=== PATIENT | female | born 1935 | race Caucasian/White ===

== ENCOUNTER 2021-12-06 10:45 | Outpatient (RCR) | payer MEDICARE, OTHER, SELFPAY ==
--- NOTE | 2021-10-03 07:36 | PT.OPEX ---
Please sign below for PT evaluation completed on 10/02/21. Thank you. PT [place] [facility] Eval PT [facility] Outpatient Eval Start: 09/24/21 12:59 Freq: Status: Active Protocol: Document 10/02/21 09:46 TLQ (Rec: 10/02/21 13:30 TLQ [id number]) E-signed By Dania Lantigua DPT Physical Therapy Outpatient Evaluation Insurance Information Recert Due Date 11/27/21 Insurance Name [employer],Medicare B Medical Diagnosis Trochanteric bursitis, R hip ( M70.61) Treating Diagnosis Pain in R hip (M25.551) Muscle weakness (M62.81) Referring MD Lara Brown PA-C Subjective Subjective Patient states she had a hip replacement last May, about a few months ago she started re-doing her exercises that she had been doing previously and had pain that goes down the side and front of her R thigh, also has pain into the groin on the R. Has tried icing her hip 2x a day and has been taking Tylenol, hasn't seemed to help much. Saw SUYAPA, thinks it is bursitis. Pain is worst when sitting and transitioning to standing, mild pain with walking. Also has some pain when she sleeps, likes to sleep on her R side. Patient reports pain as more of a muscle pain, not nerve- related, never radiates below the knee. Pain Comments 0/10 at best 5/10 at worst Date of Last Physician Visit 09/20/21 Current Work Status Retired Preferred Name Dipika Precautions Therapy Limitations/Systems Review Not Limited Objective Range of Motion Hip: flexion - L 110, R 123 twinge internal rotation - L 35, R 20 external rotation - L 20, R 22 Strength Hip: flexion - L 4/5, R 3+/5 pain abduction - 4+/5 bl adduction - L 4/5, R 4/5 groin pain internal rotation - L 5/5, R 4 /5 external rotation - L 4/5, R 3 /5 pain Knee: flexion - 5/5 bl extension - 4+/5 bl Balance & Gait TUG - not performed due to time constraints, plan to assess next visit Antalgic gait pattern, slow sal, no use of AD Posture LLD - supine to sit test - RLE shorter in supine and long sit (R posterior innominate rotation) Other/Pertinent Objective DERREK - positive bilaterally R greater trochanter tender with palpation Tender with palpation of R quadricep and IT band Increase muscle tone in R glutes/piriformis Mild edema noted at R great trochanter Assessment Assessment/Impression Patient is a 86 year old female who presents to physical therapy with symptoms and objective findings consistent with greater trochanteric pain syndrome and bursitis. Pain increases with prolonged sitting and transitional movements, also increases when laying on affected side and with resisted ER of the R hip. Mild edema noted around R greater trochanter, tight gluteal muscles with palpation. Additionally patient found to have leg length discrepancy, RLE was shorter with supine to sit test and realigned using MET to correct posterior innominate rotation on R. Patient noted to have slower, antalgic gait, plan to assess functional balance next time to assess fall risk, not tested this visit due to time constraints. Provided patient with LE stretches to reduce tissue tightness and educated her in pathology of hip bursitis. She will benefit from skilled physical therapy interventions to reduce tissue irritation, improve muscle flexibility, and increase hip strength to decrease symptoms and improve mobility to return patient to [facility]. Primary Functional Limitations pain in R hip, pain with laying on R side, pain with transitioning from sit to stand, hip muscle weakness Plan of Care Rehabilitation Potential Good Physical Therapy Goals created 10/02/21: STG - Patient will decrease subjective report of pain at worst from 5/10 to 3/10 to indicate improving symptoms and less pain with getting out of her car in 4 weeks. STG - Patient will increase R gross hip strength to 4/5 in order to maintain pelvic alignment and decrease pressure placed on R hip to allow healing in 4 weeks. LTG - Patient will increase gross hip strength to 5/5 to normal gait pattern and ambulate with less pain in her hip in 8 weeks. LTG - Patient will adhere to HEP consisting of LE stretches and strengthening exercises to manage R hip symptoms on her own and reduce recurrence of symptoms for improve QOL in 8 weeks. Treatment Plan/Direct Interventions Gait Training,Ice/Cold/ Vasopneumatic,Joint Mobilization,Manual Therapy, Neuromuscular Re-ed, Therapeutic Activities, Therapeutic Exercises, Ultrasound Frequency/Duration 1x/week for 6-8 weeks Patient Will Be Discharged From Therapy Completion of LTG(s),Skills Plateau,Independent w/HEP, Independently Progressing Evaluation Billing Untimed Code Treatment Minutes 30 Complexity Low
== END 2022-01-17 15:07 | disposition home or self-care (01) ==
PROVIDERS: PCP Family Medicine; Visit Provider Physician Assistant Surgical
DX: M70.61 Trochanteric bursitis, right hip (principal); Z51.89 Encounter for other specified aftercare
CPT/HCPCS: 97110; 97140; 97161

== ENCOUNTER 2022-02-01 09:04 | Outpatient (CLI) | payer OTHER, MEDICARE, SELFPAY | END 2022-02-01 09:05 | disposition home or self-care (01) | LOC: AMB 02-17 21:00 | PROVIDERS: PCP Family Medicine; Visit Provider Emergency Medicine Emergency Medical Services | DX: S19.9XXA Unspecified injury of neck, initial encounter (principal); V86.05XA Driver of 3- or 4- wheeled all-terrain vehicle (ATV) injured in traffic accident, initial encounter; Y92.410 Unspecified street and highway as the place of occurrence of the external cause | CPT/HCPCS: A0425; A0427 ==

== ENCOUNTER 2022-02-01 09:38 | Emergency (ER) | payer MEDICARE, OTHER, SELFPAY ==
[2022-02-01] VITALS (46 sets, daily range): BP systolic 142–182; BP diastolic 75–104; PULSE 67–83; RESP 20–24; TEMP 36.1; O2SAT 90–97
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
[2022-02-01 10:14] LABS: Basophils Absolute Auto 0.02 K/uL (0.00-0.30); Basophils Percent Auto 0.3 % (0.0-3.0); Eosinophils Absolute Auto 0.18 K/uL (0.00-0.50); Eosinophils Percent Auto 3.1 % (0.0-7.0); Hematocrit 41.7 % (33.0-51.0); Hemoglobin* 14.1 gm/dL (12.0-16.0); Immature Granulocytes Abs Auto 0.07 K/uL (0.00-0.30); Immature Granulocytes Pct Auto 1.2 %; Lymphocytes Percent Auto 14.6 % (20-44); Mean Corpuscular HGB Conc 34 gm/dL (32-36); Mean Corpuscular Hemoglobin 34 pg (26-34); Mean Corpuscular Volume 100 fL (80-100); Monocytes Percent Auto 10.7 % (0.0-11.0); Neutrophils Absolute Auto 4.14 K/uL (1.7-7.0); Neutrophils Percent Auto 70.1 % (42.0-72.0); Platelet Count* 218 K/uL (140-440); RDW Coefficient of Variation % 12.6 % (11.5-15.5); Red Blood Count 4.16 m/uL (4.00-5.20)
[2022-02-01 10:19] LABS: Slide Review Reflex No
[2022-02-01 10:20] LABS: Chloride* 103 mmol/L (96-114)
[2022-02-01 10:21] LABS: Potassium* 4.3 mmol/L (3.6-5.1); Sodium* 135 mmol/L (135-149)
[2022-02-01 10:23] LABS: Blood Urea Nitrogen* 17 mg/dL (7-30); Carbon Dioxide* 26 mmol/L (20-32); Creatinine* 1.1 mg/dL (0.5-1.5); Estimated Glomerular Filt Rate 49 ml/min
[2022-02-01 10:24] LABS: Calcium* 8.9 mg/dL (8.4-10.6); Glucose* 101 mg/dL (60-115)
[2022-02-01 10:25] LABS: INR 1.33 (0.91-1.10); Prothrombin Time 17.2 Seconds
[2022-02-01] MEDS: HYDROmorphone 0.5 mg/0.5 ml inj 0.2 MG IVP (10:32)
[2022-02-01 11:15] LABS: Creatinine, Point-of-Care* 1.2 mg/dl (0.6-1.3)
[2022-02-01] MEDS: HYDROmorphone 0.5 mg/0.5 ml inj IVP (11:28)
--- NOTE | 2022-02-01 12:15 | ED.NURSE ---
MD in room to update pt with results. EMS c-collar removed, ED c-collar applied for better fit.
[2022-02-01] MEDS: ONDANSETRON 2 MG/ML inj 4 MG IVP (13:30)
--- NOTE | 2022-02-01 13:47 | ED.NURSE ---
Report called to [facility] ED RN.
== END 2022-02-01 13:40 | disposition other institution (70) ==
PROVIDERS: Emergency Provider Emergency Medicine Emergency Medical Services; PCP Family Medicine
DX: S12.101A Unspecified nondisplaced fracture of second cervical vertebra, initial encounter for closed fracture (principal); S12.201A Unspecified nondisplaced fracture of third cervical vertebra, initial encounter for closed fracture; V86.59XA Driver of other special all-terrain or other off-road motor vehicle injured in nontraffic accident, initial encounter
CPT/HCPCS: 36415; 70450; 71260; 72125; 74177; 80048; 82565; 85025; 85610; 93005; 96374; 96375; 96376; 99285; 99291; G0390; J1170; J2405; Q9967

== ENCOUNTER 2022-02-01 13:28 | Outpatient (CLI) | payer OTHER, MEDICARE, SELFPAY | END 2022-02-01 13:29 | disposition home or self-care (01) | LOC: AMB 02-17 21:04 | PROVIDERS: PCP Family Medicine; Visit Provider Emergency Medicine Emergency Medical Services | DX: S12.100S Unspecified displaced fracture of second cervical vertebra, sequela (principal); S12.200S Unspecified displaced fracture of third cervical vertebra, sequela; S22.089S Unspecified fracture of T11-T12 vertebra, sequela | CPT/HCPCS: A0425; A0426 ==

== ENCOUNTER 2022-02-09 10:28 | Inpatient (IN) | payer MEDICARE, OTHER, SELFPAY ==
[2022-02-09] VITALS (13 sets, daily range): BP systolic 113–149; BP diastolic 45–67; PULSE 69–71; RESP 14–25; TEMP 36.3–36.7; O2SAT 92–95; BMI 25.5; BMI 26.4
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
[2022-02-09 11:57] LABS: Basophils Percent Auto 0.1 % (0.0-3.0); Eosinophils Percent Auto 0.2 % (0.0-7.0); Hemoglobin* 11.5 gm/dL (12.0-16.0); Immature Granulocytes Pct Auto 1.4 %; Lymphocytes Percent Auto 2.2 % (20-44); Mean Corpuscular HGB Conc 34 gm/dL (32-36); Mean Corpuscular Hemoglobin 34 pg (26-34); Mean Corpuscular Volume 100 fL (80-100); Monocytes Percent Auto 9.8 % (0.0-11.0); Neutrophils Percent Auto 86.3 % (42.0-72.0); Platelet Count* 257 K/uL (140-440); RDW Coefficient of Variation % 13.1 % (11.5-15.5); Red Blood Count 3.39 m/uL (4.00-5.20)
[2022-02-09 11:59] LABS: Slide Review Reflex No
[2022-02-09 12:05] LABS: Troponin, Point-of-Care* 0.03 ng/ml (0.01-0.04)
[2022-02-09 12:14] LABS: Albumin* 3.4 g/dL (3.3-5.0); Chloride* 100 mmol/L (96-114); Sodium* 129 mmol/L (135-149)
[2022-02-09 12:15] LABS: Potassium* 4.5 mmol/L (3.6-5.1)
[2022-02-09 12:17] LABS: Alanine Aminotransferase* 29 U/L (4-35); Alkaline Phosphatase* 90 U/L (40-150); Aspartate Amino Transferase* 30 U/L (12-35); Bilirubin Total* 1.1 mg/dL (0.1-1.5); Blood Urea Nitrogen* 24 mg/dL (7-30); Carbon Dioxide* 25 mmol/L (20-32); Estimated Glomerular Filt Rate 55 ml/min; Glucose* 108 mg/dL (60-115); Total Protein* 6.5 g/dL (6.0-8.3)
[2022-02-09 12:18] LABS: Calcium* 8.6 mg/dL (8.4-10.6)
[2022-02-09 12:30] LABS: NT Pro B Type NatriureticPept* 4320 pg/mL
[2022-02-09 12:31] LABS: SARS PCR* Negative SARS-CoV-2 (Negative)
--- NOTE | 2022-02-09 12:44 | ED.NURSE ---
placed on O2 at 2 liters via nc for pulse ox 88-89% room air. patient feels more comfortable with the O2 on continues to run at 89%.
--- NOTE | 2022-02-09 12:53 | RESP.RT ---
Patient sitting up in bed on Room Air, SaO2 92%, breathing regular/easy, respiratory rate 20/minute. BBS with good unilateral chest rise, good air movement Right side, and left upper lobe. Slightly diminished. Left Lower lobe more diminished than right. Capillary refill less than 2 seconds. Patient appears comfortable, good clear voice. Good congested non-productive cough, able to clear secretions when present.
[2022-02-09 12:56] LABS: C Reactive Protein* 30.2 mg/dL (0.5-1.0)
[2022-02-09] MEDS: cefTRIAXone 1 GM in 0.9 % SODIUM CHLORIDE Mini-bag 100 ML IVPB (15:04)
[2022-02-09] MEDS: AZITHROMYCIN 250 MG TABLET 500 MG PO (15:04)
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
--- NOTE | 2022-02-09 15:35 | ED.NURSE ---
given report to Aye Bedoya who will resume care of patient in room 251 via cart. Son is at the bedside. patient was eating sandwich and apple sauce with water to drink.
[2022-02-09] MEDS: ACETAMINOPHEN 325 MG TABLET 975 MG PO (16:27)
[2022-02-09] MEDS: hydrOXYzine pamoate 25 MG CAPSULE PO ×2 (16:27→21:51)
[2022-02-09] MEDS: LIDOCAINE 5% PATCH TRANSDERMA (16:38)
--- NOTE | 2022-02-09 17:19 | RESP.RT ---
PEP therapy with Aerobika demonstration, information, instruction, patient return demonstration with good effort and chest shake, had patient feel cheat shake to understand use of Aerobika, Patient understands and states so. Patient sitting up in bed on Room Air, SaO2 92%, breathing regular/easy, respiratory rate 20/minute. BBS with good unilateral chest rise, good air movement Right side, and left upper lobe. Slightly diminished. Left Lower lobe more diminished than right. Capillary refill less than 2 seconds. Patient appears comfortable, good clear voice. Good congested non-productive cough, able to clear secretions when present,
[2022-02-09 18:13] LABS: Hemoglobin* 11.4 gm/dL (12.0-16.0)
--- NOTE | 2022-02-09 19:16 | PC.NURSE ---
End of Shift: Patient admitted 251. Pleasant and cooperative. Afebrile. O2 sats 94% on room air. Rating pain in left side 7/10 and PRN Vistaril and Tylenol given x1. Reluctant to take narcotic pain medication. Up to bathroom with 1 assist, walker and gait belt. Tolerating regular diet with no nausea. Occasional productive cough with red/brown sputum. Tele showing paced rhythm.
[2022-02-09] MEDS: AMLODIPINE 5 MG TABLET PO (20:57)
[2022-02-09] MEDS: SODIUM CHLORIDE 0.9 % (FLUSH) 10 ML SYRINGE 5 ML IVF (21:43)
[2022-02-09] MEDS: ONDANSETRON ODT 4 MG TAB PO (21:57)
--- NOTE | 2022-02-09 21:58 | CRLHL7_ITS ---
For Patients: As a result of the Cures Act, medical imaging exams and procedure reports are released immediately into your electronic medical record. You may view this report before your referring provider. If you have questions, please contact your health care provider. INDICATION: Tachycardia TECHNIQUE: Chest 1 view. COMPARISON: CT chest earlier same day 02/09/2022 FINDINGS: There is a multi left-sided cardiac device. Cardiomegaly. Left lower lobe consolidation with a small left pleural effusion. Remainder of the lungs are clear. Bones are unremarkable. IMPRESSION: Left basilar consolidation with small left pleural effusion Dictated by Bibiana Willis MD @ 02/09/2022 11:04:57 PM Dictated by: Bibiana Willis MD @ 02/09/2022 23:05:16 (Electronically Signed)
[2022-02-09] MEDS: DORZOLAMIDE/TIMOLOL 2-0.5% OPHTH 1 DROP EYE-LEFT (22:21)
[2022-02-09] MEDS: HYDROmorphone 2 MG TABLET 1 MG PO (22:24)
[2022-02-10] VITALS (8 sets, daily range): BP systolic 114–145; BP diastolic 50–73; PULSE 69–80; RESP 18–20; TEMP 36.4–36.7; O2SAT 90–94
[2022-02-10] MEDS: guaiFENesin 100 MG/ML CUP PO ×3 (00:36→15:37)
--- NOTE | 2022-02-10 05:35 | PC.NURSE ---
VSS on RA with low DBP in 51. Patient is alert and oriented x4, call light appropriate. Pain managed PRN Dilaudid 1 mg, hydroxyzine 25 mg. medicated with Zofran prior to administration of Dilaudid. PRN guaifenesin 200 mg given for cough with good effect. Pt c/o of SOB related multiple ribs fracture. Incentive spirometer given that help with breathing. Pt slept in recliner this shift. up to bathroom with assist of 1 x2.
[2022-02-10 07:14] LABS: Basophils Percent Auto 0.1 % (0.0-3.0); Eosinophils Percent Auto 0.1 % (0.0-7.0); Hematocrit 34.5 % (33.0-51.0); Hemoglobin* 11.5 gm/dL (12.0-16.0); Immature Granulocytes Pct Auto 0.8 %; Lymphocytes Percent Auto 2.9 % (20-44); Mean Corpuscular HGB Conc 33 gm/dL (32-36); Mean Corpuscular Hemoglobin 34 pg (26-34); Mean Corpuscular Volume 101 fL (80-100); Monocytes Percent Auto 10.6 % (0.0-11.0); Neutrophils Percent Auto 85.5 % (42.0-72.0); Platelet Count* 287 K/uL (140-440); RDW Coefficient of Variation % 13.8 % (11.5-15.5); Red Blood Count 3.42 m/uL (4.00-5.20); White Blood Count* 18.14 K/uL (4.50-11.00)
[2022-02-10 07:25] LABS: Albumin* 3.2 g/dL (3.3-5.0); Chloride* 99 mmol/L (96-114); Potassium* 4.8 mmol/L (3.6-5.1); Sodium* 130 mmol/L (135-149)
[2022-02-10 07:27] LABS: Bilirubin Total* 0.7 mg/dL (0.1-1.5); Creatinine* 1.1 mg/dL (0.5-1.5); Est. Creatinine Clearance* 34.37; Estimated Glomerular Filt Rate 49 ml/min
[2022-02-10 07:28] LABS: Alanine Aminotransferase* 26 U/L (4-35); Alkaline Phosphatase* 103 U/L (40-150); Aspartate Amino Transferase* 26 U/L (12-35); Blood Urea Nitrogen* 27 mg/dL (7-30); Carbon Dioxide* 26 mmol/L (20-32); Glucose* 94 mg/dL (60-115); Total Protein* 6.4 g/dL (6.0-8.3)
[2022-02-10 07:29] LABS: Calcium* 8.6 mg/dL (8.4-10.6)
[2022-02-10 07:41] LABS: Slide Review Reflex No
[2022-02-10] MEDS: hydrOXYzine pamoate 25 MG CAPSULE PO ×2 (08:29→15:40)
[2022-02-10] MEDS: ONDANSETRON ODT 4 MG TAB PO (08:29)
[2022-02-10] MEDS: LOSARTAN POTASSIUM 50 MG TABLET PO (09:22)
[2022-02-10] MEDS: HYDROmorphone 2 MG TABLET 1 MG PO (09:22)
[2022-02-10] MEDS: DORZOLAMIDE/TIMOLOL 2-0.5% OPHTH 1 DROP EYE-LEFT ×2 (09:23→21:01)
[2022-02-10] MEDS: AMLODIPINE 5 MG TABLET 2.5 MG PO ×2 (09:23→20:58)
[2022-02-10] MEDS: SODIUM CHLORIDE 0.9 % (FLUSH) 10 ML SYRINGE 5 ML IVF ×2 (09:23→21:02)
--- NOTE | 2022-02-10 12:00 | CRLHL7_ITS ---
For Patients: As a result of the Century Cures Act, medical imaging exams and procedure reports are released immediately into your electronic medical record. You may view this report before your referring provider. If you have questions, please contact your health care provider. INDICATION: Follow up pleural effusion. TECHNIQUE: Upright portable AP image of the chest. COMPARISON: 02/09/2022. FINDINGS: No significant change. Shallow inspiration with left-sided pleural effusion of small to moderate size. Right lung and pleural space clear. Cardiomegaly and cardiac pacer. No significant osseous abnormality. IMPRESSION: 1. No significant change. 2. Left-sided pleural effusion of small to moderate size. 3. Cardiomegaly. Dictated by Antonio Estrada MD @ 02/10/2022 12:50:56 PM (Electronically Signed)
--- NOTE | 2022-02-10 13:11 | RESP.RT ---
Patient lying in bed, on room air, SaO2 92%, breathing regular/easy, shallow breaths. rate 20/minute. BBS diminished with fine crackles, absent Left Lower Lobe. Patient uses PEP, Aerobika, with fair exhalation effort, fair chest shake
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
[2022-02-10] MEDS: 0.9 % SODIUM CHLORIDE 250 ml IV (15:37)
[2022-02-10] MEDS: cefTRIAXone 1 GM in 0.9 % SODIUM CHLORIDE Mini-bag 100 ML IVPB (15:38)
[2022-02-10] MEDS: AZITHROMYCIN 250 MG TABLET 500 MG PO (15:39)
[2022-02-10] MEDS: ACETAMINOPHEN 325 MG TABLET 975 MG PO (15:39)
[2022-02-10] MEDS: LIDOCAINE 5% PATCH TRANSDERMA (16:01)
--- NOTE | 2022-02-10 18:50 | PC.NURSE ---
Addendum entered by Blair Meza RN 02/10/22 19:08: encouraged IS and Aerobika use every hour Original Note: End of Shift: pt has been very Pleasant and cooperative. Rating pain in left side 10 and PRN Vistaril and Tylenol given x1. Afebrile. O2 sats 94% on room air. pt does not to want to take pain meds. it makes her nauseated. lidocaine patches x2 applied to left chest . Up to bathroom with 1 assist, walker and gait belt. Tolerating regular diet with no nausea. she did cough on a Tylenol, she was sitting up in bed. given with apple sauce and when she took a sip of water she cough on the pill with water. Occasional productive cough with red/brown sputum. Tele showing paced rhythm. Mepilex patches bi-lateral chest where changed yesterday. padding on the neck brace was changed by RN and OT. SL is patent
[2022-02-10] MEDS: LATANOPROST 0.005% OPHTH 1 DROP EYE-LEFT (21:07)
[2022-02-10] MEDS: ISOSORBIDE MONONITRATE ER 30 MG TAB PO (21:08)
[2022-02-11 03:00] VITALS: BP 133/77; PULSE 66; RESP 18; TEMP 36.6; O2SAT 94
[2022-02-11] MEDS: guaiFENesin 100 MG/ML CUP PO ×3 (03:06→20:15)
[2022-02-11] MEDS: ACETAMINOPHEN 325 MG TABLET 975 MG PO ×3 (03:07→14:48)
--- NOTE | 2022-02-11 05:59 | PC.NURSE ---
VSS on RA. Patient is alert and oriented x 4, able to verbalize needs to staff. Pain managed with PRN Tylenol 975 mg, guaifenesin 10 ml for cough. Hourly checks completed and patient is able to repo self in bed. patient slept most of shift and comfortable. patient had small BM at the end of shift.
[2022-02-11 06:21] LABS: Basophils Percent Auto 0.1 % (0.0-3.0); Eosinophils Percent Auto 0.3 % (0.0-7.0); Hematocrit 32.5 % (33.0-51.0); Hemoglobin* 10.9 gm/dL (12.0-16.0); Immature Granulocytes Pct Auto 0.5 %; Lymphocytes Percent Auto 4.9 % (20-44); Mean Corpuscular HGB Conc 34 gm/dL (32-36); Mean Corpuscular Hemoglobin 34 pg (26-34); Mean Corpuscular Volume 100 fL (80-100); Monocytes Percent Auto 8.6 % (0.0-11.0); Neutrophils Percent Auto 85.6 % (42.0-72.0); Platelet Count* 290 K/uL (140-440); RDW Coefficient of Variation % 13.6 % (11.5-15.5); Red Blood Count 3.25 m/uL (4.00-5.20); White Blood Count* 14.86 K/uL (4.50-11.00)
[2022-02-11 06:22] LABS: Slide Review Reflex No
[2022-02-11 06:37] LABS: Chloride* 100 mmol/L (96-114); Potassium* 4.4 mmol/L (3.6-5.1); Sodium* 129 mmol/L (135-149)
[2022-02-11 06:40] LABS: Estimated Glomerular Filt Rate 55 ml/min
[2022-02-11 06:41] LABS: Blood Urea Nitrogen* 34 mg/dL (7-30); Calcium* 8.4 mg/dL (8.4-10.6); Carbon Dioxide* 26 mmol/L (20-32); Glucose* 97 mg/dL (60-115)
[2022-02-11 07:00] VITALS: BP 135/66; PULSE 71; PULSE 74; RESP 22; TEMP 36.2; O2SAT 92
[2022-02-11 07:35] LABS: C Reactive Protein* 34.4 mg/dL (0.5-1.0)
[2022-02-11] MEDS: LOSARTAN POTASSIUM 50 MG TABLET PO ×2 (09:07→20:35)
[2022-02-11] MEDS: DORZOLAMIDE/TIMOLOL 2-0.5% OPHTH 1 DROP EYE-LEFT ×2 (09:08→20:34)
[2022-02-11] MEDS: SODIUM CHLORIDE 0.9 % (FLUSH) 10 ML SYRINGE 5 ML IVF ×2 (09:08→20:33)
[2022-02-11 11:00] VITALS: BP 126/60; PULSE 71; RESP 24; TEMP 36.4; O2SAT 94
--- NOTE | 2022-02-11 11:28 | RESP.RT ---
Pt doing well with aerobika, and deep breathing on her own. She does not like the IS. At this time continue with aerobika and deep breathing. BS clear, very diminished in the bases.
--- NOTE | 2022-02-11 12:09 | PC.SOCIAL ---
Met with pt. and son to discuss discharge plans. Pt. lives alone but son is supportive. Pt. is moving better today and wants to discharge home. Therapies are recommending home care at discharge and pt. is in agreement. Pt. has had [facility] in the past and would like to use them again. A request for PT/OT and nursing was sent to [facility]. Waiting to see if they have the staffing.
[2022-02-11] MEDS: AZITHROMYCIN 250 MG TABLET 500 MG PO (14:48)
[2022-02-11] MEDS: 0.9 % SODIUM CHLORIDE 250 ml IV (14:55)
[2022-02-11] MEDS: cefTRIAXone 1 GM in 0.9 % SODIUM CHLORIDE Mini-bag 100 ML IVPB (14:56)
[2022-02-11 15:00] VITALS: BP 145/69; PULSE 70; PULSE 71; RESP 28; TEMP 36.3; O2SAT 94
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
[2022-02-11] MEDS: LIDOCAINE 5% PATCH TRANSDERMA (17:03)
[2022-02-11 19:00] VITALS: BP 140/74; PULSE 70; RESP 26; TEMP 36.4; O2SAT 90
--- NOTE | 2022-02-11 19:00 | PC.NURSE ---
Addendum entered by Roxy Jimenez RN 02/11/22 19:09: Tele is paced. Original Note: End of Shift: Patient pleasant and cooperative. Patient vitally stable, lung diminished on left posterior side, BS WNL, IV intact. Patient SBA with walker. Patient has rated pain at most 4/10 in the right ribs. PRN tylenol given when due, patient declined other pain meds. Lidocaine patches x3 applied, 1 mid/lower chest between breasts, 1 under left breast, and 1 on left lower back. Patient's o2 sats are WNL, but patient does breath shallow at times and has respirations at high as 28. Patient's neck brace was loosened during dinner to help patient be able to chew better. Patient reported pain is reduced with the neck brace more loose. Patient tolerating regular diet but not with great appetite, patient needs encouragement to drink more water, patient urinating.
[2022-02-11] MEDS: HYDROmorphone 2 MG TABLET 1 MG PO (20:08)
[2022-02-11] MEDS: ONDANSETRON ODT 4 MG TAB PO (20:08)
[2022-02-11] MEDS: hydrOXYzine pamoate 25 MG CAPSULE PO (20:16)
[2022-02-11] MEDS: LATANOPROST 0.005% OPHTH 1 DROP EYE-LEFT (20:34)
[2022-02-11] MEDS: ISOSORBIDE MONONITRATE ER 30 MG TAB PO (20:35)
[2022-02-11] MEDS: AMLODIPINE 5 MG TABLET PO (20:36)
[2022-02-11 23:00] VITALS: BP 125/63; PULSE 70; PULSE 71; RESP 26; TEMP 36.5; O2SAT 92
--- NOTE | 2022-02-11 23:46 | CRLHL7_ITS ---
For Patients: As a result of the Century Cures Act, medical imaging exams and procedure reports are released immediately into your electronic medical record. You may view this report before your referring provider. If you have questions, please contact your health care provider. INDICATION: Dyspnea TECHNIQUE: Chest radiograph 1 view COMPARISON: 02/10/2022 FINDINGS: The sensitivity and specificity of the exam are moderately limited by the patient`s body habitus. Mediastinum: The mediastinum is normal in appearance. Severe stable cardiomegaly is noted. There is a left cardiac pacer present with leads in the right atrium, coronary sinus, and right ventricle. Lung: Consolidation of the left lung base with moderate left pleural effusion is present, similar to prior exam. No pneumothorax is identified. Bone and Soft tissue: Unremarkable for age. IMPRESSIONS: 1. Severe stable cardiomegaly is noted. 2. Consolidation of the left lung base with moderate left pleural effusion is present, similar to prior exam. Dictated by Bry Morrow MD @ 02/12/2022 12:15:01 AM Dictated by: Bry Morrow MD @ 02/12/2022 00:15:07 (Electronically Signed)
[2022-02-12] MEDS: HYDROmorphone 2 MG TABLET 1 MG PO ×2 (00:37→02:57)
[2022-02-12] MEDS: guaiFENesin 100 MG/ML CUP PO ×2 (00:38→08:39)
[2022-02-12] MEDS: BENZOCAINE/MENTHOL 1 EACH LOZENGE MUCOUS MEM ×4 (01:46→08:39)
[2022-02-12] MEDS: hydrOXYzine pamoate 25 MG CAPSULE PO (02:58)
[2022-02-12 03:00] VITALS: BP 153/71; PULSE 71; RESP 28; TEMP 36.6; O2SAT 91
[2022-02-12] MEDS: IPRAT-ALBUT 0.5-2.5 MG/3 ML NEB 1 NEB IH ×2 (05:27→11:46)
--- NOTE | 2022-02-12 06:32 | PC.NURSE ---
[id number]: Patient cooperative with cares. Unable to sleep during noc d/t discomfort, pain, congestion, and painful cough. See Emar for medication administration. Dilaudid order changed to Q2H but remains ineffective for pain control, even with Vistaril administration. Patient has refused pain medications since 299. Patient declined Tylenol and ice. SBA w/walker. O2 sats 87-88% Placed on 1Lt NC. Patient c/o SOB/chest congestion. Aroldo updated. Maikelo neb ordered and administered. Independently uses Aerob[employer]. Refuses IS because it hurts too much.
[2022-02-12 07:00] VITALS: O2SAT 92
[2022-02-12 07:30] VITALS: PULSE 72
[2022-02-12] MEDS: ACETAMINOPHEN 325 MG TABLET 975 MG PO (08:42)
[2022-02-12] MEDS: LOSARTAN POTASSIUM 50 MG TABLET PO (08:43)
[2022-02-12] MEDS: AMLODIPINE 5 MG TABLET 2.5 MG PO (08:43)
[2022-02-12 09:00] VITALS: BP 131/53; PULSE 72; RESP 16; TEMP 36.1; O2SAT 88
[2022-02-12] MEDS: DORZOLAMIDE/TIMOLOL 2-0.5% OPHTH 1 DROP EYE-LEFT (09:32)
[2022-02-12] MEDS: SODIUM CHLORIDE 0.9 % (FLUSH) 10 ML SYRINGE 5 ML IVF ×2 (09:33→10:01)
[2022-02-12 12:00] VITALS: BP 122/52; PULSE 70; RESP 16; TEMP 36.1; O2SAT 92
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
--- NOTE | 2022-02-12 15:14 | ONC.NURNOTE ---
transfered to [facility]. by [place] [facility]. at 1300. papers sent.
== END 2022-02-12 12:48 | disposition short-term general hospital (02) | DRG 183 ==
LOC: ED 11:51 → MEDSURG 15:13
PROVIDERS: Family Medicine; Admitting Provider Family Medicine; Emergency Provider Family Medicine; PCP Family Medicine; Visit Provider Family Medicine
DX: S22.42XA Multiple fractures of ribs, left side, initial encounter for closed fracture (principal); J18.9 Pneumonia, unspecified organism; S22.059A Unspecified fracture of T5-T6 vertebra, initial encounter for closed fracture; S12.100A Unspecified displaced fracture of second cervical vertebra, initial encounter for closed fracture; S12.200A Unspecified displaced fracture of third cervical vertebra, initial encounter for closed fracture; S22.089A Unspecified fracture of T11-T12 vertebra, initial encounter for closed fracture; I48.20 Chronic atrial fibrillation, unspecified; J90 Pleural effusion, not elsewhere classified; I50.40 Unspecified combined systolic (congestive) and diastolic (congestive) heart failure; R04.2 Hemoptysis; J91.8 Pleural effusion in other conditions classified elsewhere; Z79.01 Long term (current) use of anticoagulants; Z95.0 Presence of cardiac pacemaker; M81.0 Age-related osteoporosis without current pathological fracture; Z96.641 Presence of right artificial hip joint; G89.11 Acute pain due to trauma; I51.7 Cardiomegaly; D64.9 Anemia, unspecified
CPT/HCPCS: 36415; 71045; 71260; 74177; 80048; 80053; 83880; 84484; 85018; 85025; 86140; 86850; 86900; 86901; 87635; 93005; 94640; 94664; 94761; 97110; 97116; 97162; 97166; 97530; 97535; 99284; 99285; A9270; J0696; J7050; Q9967

== ENCOUNTER 2022-02-12 12:35 | Outpatient (CLI) | payer MEDICARE, OTHER, SELFPAY | END 2022-02-12 12:36 | disposition home or self-care (01) | LOC: AMB 02-21 19:33 | PROVIDERS: PCP Family Medicine; Visit Provider Family Medicine | DX: R06.09 Other forms of dyspnea (principal); R05.9 Cough, unspecified | CPT/HCPCS: A0425; A0428 ==

== ENCOUNTER 2024-11-30 09:19 | Outpatient (CLI) | payer MEDICARE, OTHER, SELFPAY | END 2024-11-30 09:20 | disposition home or self-care (01) | PROVIDERS: PCP Physician Assistant; Visit Provider Family Medicine | DX: M54.16 Radiculopathy, lumbar region (principal); M48.062 Spinal stenosis, lumbar region with neurogenic claudication | CPT/HCPCS: 64483; J1100; Q9966 ==